=== PATIENT | female | born 1940 | race Caucasian/White ===

== ENCOUNTER → 2017-02-12 | Outpatient (CLI) | payer OTHER ==
[~2017-02-12] MED LIST: ACETAMINOPHEN PO; ALBUTEROL0.83 MG/ML NEB; ALBUTEROL17 GM INH; ALLEGRA; BENZONATATE PO; CLARITIN10 M2 PO; FAMOTIDINE PO; HUMIBID-LA600 MG PO; LEVAQUIN750 M1 PO; MUCINEX DM ER1 EACH PO; NO MEDICATIONS; NON-ASPIRIN PA325 M1 PO; PREDNISONE PO; PREDNISONE10 MG PO; SYMBICORT INH; ZITHROMAX PO
--- NOTE | ~2017-02-12 | CT57 ---
[facility] A Service of [facility] & [facility] RADIOLOGY TEXT RESULTS PATIENT: EM[facility]AGAN [facility] UN[facility] #: [id number] AGE: [address]: Alan Kohli MD SEX: F ORDER DR: [id number] [facility] [address] [place], [place] [address] [id number] O MR#: [id number] Acc #: [id number] NAME: EMILIANA PAGAN : 1940 SEX: F STUDY DATE/TIME: 02/12/2017 13:38 UNIT: [facility] ROOM: STUDY DESCRIPTION: CT Chest Wo Cont Attending Physician: Alan Kohli M.D. Referring Physician: Alan Kohli M.D. Ordering Physician: Alan Kohli M.D. Primary Care Physician: Sallie Junior Aprn MEDICAL IMAGING REPORT This report is preliminary unless electronic signature is present EXAM CT chest INDICATIONS Pulmonary nodule. Sarcoidosis. Enlarged lymph nodes of the mediastinum. COPD. TECHNIQUE CT of the thorax without contrast. Coronal and sagittal reconstructions were obtained. This CT exam was performed with one or more of the following radiation dose reduction techniques: automatic exposure control, adjustment of mA and/or kV according to patient size, and iterative reconstruction. COMPARISON CT chest dated 07/23/2016 and PET/CT dated 08/12/2016. FINDINGS There are multiple mildly enlarged mediastinal and hilar lymph nodes. These are unchanged from the prior CT. A subcarinal lymph node measures 1.8 cm short axis (1.9 cm previously). An AP window lymph node measures 1.0 compared to 1.1 cm previously. A precarinal lymph node measures 1.4 cm compared to 1.5 cm previously. A right infrahilar node measures 1.1 cm compared to 1.0 cm previously. There is a moderate hiatal hernia. Cardiac size is normal. There is moderate coronary calcifications. No pericardial or pleural effusion. The thoracic aorta is normal in size. There is severe emphysema. Three small pulmonary nodules in the right lung are unchanged from the prior study. These are fairly ovoid nodules [facility] A Service of [facility] & [facility] RADIOLOGY TEXT RESULTS PATIENT: EMILIANA PAGAN LOCATION: [facility] : 38 UNIT #: [id number] AGE: [address]: Alan Kohli MD SEX: F ORDER DR: with the largest measuring up to 1.2 cm. On the reconstructed images, they fall on the right major fissure. Visual lymph nodes/pulmonary nodules are generally considered to be benign. Limited images of the upper abdomen were obtained. No acute findings. There is a few small lymph nodes in the upper abdomen. 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 The visualized portion of this mass is not changed from the prior study. IMPRESSION Mediastinal bilateral hilar lymphadenopathy is unchanged from the 08/12/2016 comparison. Patient has reported history sarcoidosis. Would recommend continued followup in 6-12 months to document stability. Dictated by... Keith Menendez M.D. THIS IS AN ELECTRONICALLY VERIFIED REPORT Keith Menendez M.D. at 02/15/2017 3:00 PM DAILY/[place] TD: 02/12/2017 21:35 JOB #: [id number] MEDICAL IMAGING REPORT Page 1 of 1 COPY
== END | disposition home or self-care (01) ==
LOC: CCAT 12:44
DX: R59.0 Localized enlarged lymph nodes (principal); D86.9 Sarcoidosis, unspecified; J44.9 Chronic obstructive pulmonary disease, unspecified; R91.1 Solitary pulmonary nodule
CPT/HCPCS: 71250